=== PATIENT | male | born 2000 | race American Indian/Alaskan Native ===

== ENCOUNTER 2019-02-01 21:23 | Emergency (ER) | payer OTHER ==
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
[2019-02-02 03:36] VITALS: BP 132/84
== END 2019-02-02 03:37 | disposition home or self-care (01) ==
LOC: ED 21:23
DX: M54.9 Dorsalgia, unspecified (principal); I10 Essential (primary) hypertension; G43.909 Migraine, unspecified, not intractable, without status migrainosus; J45.909 Unspecified asthma, uncomplicated; Z90.49 Acquired absence of other specified parts of digestive tract; Z79.899 Other long term (current) drug therapy; V89.2XXA Person injured in unspecified motor-vehicle accident, traffic, initial encounter; Y93.89 Activity, other specified; Y92.488 Other paved roadways as the place of occurrence of the external cause; Y99.8 Other external cause status
CPT/HCPCS: 72070; 72100; 99283

== ENCOUNTER 2019-02-11 10:36 | Emergency (ER) | payer MEDICAID, OTHER ==
[2019-02-11 11:01] VITALS: BP 153/79
--- NOTE | 2019-02-11 11:18 | Emergency Department Report ---
ED ENT HPI - General Chief complaint: Earache Stated complaint: L EAR PAIN/DISCHARGE Time Seen by Provider: 02/11/19 11:13 Source: patient Mode of arrival: Ambulatory Limitations: No Limitations - History of Present Illness Initial comments: Krishna is a healthy 18-year-old male who presents with left ear pain tenderness and discharge for one day. He recently returned from vacation. He did swim during vacation. He uses Q tips. No fever and no trauma no nasal congestion MD complaint: ear pain (1) -: Gradual (1) Location: L ear Severity: mild Quality: burning Consistency: constant Worsens with: movement Context- Ear: recent swimming - Related Data Previous Rx's Medication Instructions Recorded Last Taken Type Ketorolac [Toradol] 10 mg PO Q6H PRN #15 tablet 02/02/19 Unknown Rx methOCARBAMOL [Robaxin] 750 mg PO Q8H PRN #21 tablet 02/02/19 Unknown Rx Ciprofloxacin/Hydrocortisone 5 drop OT BID 7 Days #1 bottle 02/11/19 Unknown Rx [Ciprofloxacin HC OTIC] Allergies Allergy/AdvReac Type Severity Reaction Status Date / Time No Known Allergies Allergy Unverified 02/01/19 21:34 ED Dental HPI - General Chief complaint: Earache Stated complaint: L EAR PAIN/DISCHARGE Time Seen by Provider: 02/11/19 11:13 Source: patient Mode of arrival: Ambulatory Limitations: No Limitations - Related Data Previous Rx's Medication Instructions Recorded Last Taken Type Ketorolac [Toradol] 10 mg PO Q6H PRN #15 tablet 02/02/19 Unknown Rx methOCARBAMOL [Robaxin] 750 mg PO Q8H PRN #21 tablet 02/02/19 Unknown Rx Ciprofloxacin/Hydrocortisone 5 drop OT BID 7 Days #1 bottle 02/11/19 Unknown Rx [Ciprofloxacin HC OTIC] Allergies Allergy/AdvReac Type Severity Reaction Status Date / Time No Known Allergies Allergy Unverified 02/01/19 21:34 ED Review of Systems ROS: Stated complaint: L EAR PAIN/DISCHARGE Other details as noted in HPI Constitutional: denies: fever ENT: ear pain. denies: throat pain Respiratory: denies: cough, shortness of breath Neurological: denies: headache ED Past Medical Hx - Past Medical History Hx Hypertension: Yes Hx Headaches / Migraines: Yes Hx Asthma: Yes - Surgical History Additional Surgical History: tonsillectomy. Right arm - Social History Smoking Status: Never Smoker Substance Use Type: None - Medications Home Medications: Home Medications Medication Instructions Recorded Confirmed Last Taken Type Ketorolac [Toradol] 10 mg PO Q6H PRN #15 tablet 02/02/19 Unknown Rx methOCARBAMOL [Robaxin] 750 mg PO Q8H PRN #21 tablet 02/02/19 Unknown Rx Ciprofloxacin/Hydrocortisone 5 drop OT BID 7 Days #1 bottle 02/11/19 Unknown Rx [Ciprofloxacin HC OTIC] ED Physical Exam - General Limitations: No Limitations General appearance: alert, in no apparent distress - Head Head exam: Present: atraumatic, normocephalic - Eye Eye exam: Present: normal appearance. Absent: scleral icterus, conjunctival injection - ENT ENT exam: Present: other (erythematous canal exudate ear tenderness) - Neck Neck exam: Present: normal inspection - Neurological Exam Neurological exam: Present: alert, oriented X3 ED Course Vital Signs 02/11/19 10:57 Temperature 98.3 F Pulse Rate 95 H Respiratory 18 Rate Blood Pressure 153/79 O2 Sat by Pulse 96 Oximetry ED Medical Decision Making - Medical Decision Making left otitis externa rx: Ciprofloxacin otic drops Critical care attestation.: If time is entered above; I have spent that time in minutes in the direct care of this critically ill patient, excluding procedure time. ED Disposition Clinical Impression: Left otitis externa Disposition: DC-01 TO HOME OR SELFCARE Is pt being admited?: No Does the pt Need Aspirin: No Condition: Stable Instructions: Otitis Externa (ED) Prescriptions: Ciprofloxacin/Hydrocortisone [Ciprofloxacin HC OTIC] 5 drop OT BID 7 Days #1 bottle Referrals: [facility] [Outside] - 3-5 Days Forms: Work/School Release Form(ED)
== END 2019-02-11 11:29 | disposition home or self-care (01) ==
LOC: ED 10:36
DX: H60.92 Unspecified otitis externa, left ear (principal); I10 Essential (primary) hypertension; G43.909 Migraine, unspecified, not intractable, without status migrainosus; J45.909 Unspecified asthma, uncomplicated; Z79.899 Other long term (current) drug therapy
CPT/HCPCS: 99282